=== PATIENT | male | born 1990 | race American Indian/Alaskan Native ===

== ENCOUNTER 2020-01-04 19:16 | Emergency (ER) | payer SELFPAY ==
[2020-01-04 19:27] VITALS: BP 148/87
--- NOTE | 2020-01-04 19:35 | Emergency Department Report ---
ED Abdominal Pain HPI - General Chief Complaint: Urogenital-Male Stated Complaint: GROIN PAIN Time Seen by Provider: 01/04/20 19:35 Source: patient Mode of arrival: Ambulatory Limitations: No Limitations - History of Present Illness Initial Comments: Patient is a 29-year-old male who comes to the ER complaining of right groin pain and concern for STI. I was get a MSE him with his STI concerns but given his groin pain he was checked into [facility] for evaluation. Patient denies any fever or chills. He denies any back pain. Last intercourse 2 days ago. Complaint: abdominal pain ED Review of Systems ROS: Stated complaint: GROIN PAIN Other details as noted in HPI Comment: All other systems reviewed and negative ED Past Medical Hx - Past Medical History Previous Medical History?: No - Surgical History Past Surgical History?: No - Social History Smoking Status: Never Smoker Substance Use Type: None ED Physical Exam - General Limitations: No Limitations General appearance: alert, in no apparent distress - Head Head exam: Present: atraumatic, normocephalic - Eye Eye exam: Present: normal appearance - ENT ENT exam: Present: mucous membranes moist - Neck Neck exam: Present: normal inspection - Respiratory Respiratory exam: Present: normal lung sounds bilaterally. Absent: respiratory distress - Cardiovascular Cardiovascular Exam: Present: regular rate, normal rhythm. Absent: systolic murmur, diastolic murmur, rubs, gallop - GI/Abdominal GI/Abdominal exam: Present: soft, normal bowel sounds - Rectal Rectal exam: Present: deferred - Extremities Exam Extremities exam: Present: normal inspection - Back Exam Back exam: Present: normal inspection - Neurological Exam Neurological exam: Present: alert, oriented X3 - Psychiatric Psychiatric exam: Present: normal affect, normal mood - Skin Skin exam: Present: warm, dry, intact, normal color. Absent: rash ED Course Vital Signs 01/04/20 19:25 Temperature 98.5 F Pulse Rate 91 H Respiratory 18 Rate Blood Pressure 148/87 O2 Sat by Pulse 100 Oximetry ED Medical Decision Making - Medical Decision Making Lab Results 01/04/20 Range/Units Unknown Urine Color Yellow (Yellow) Urine Turbidity Clear (Clear) Urine pH 6.0 (5.0-7.0) Ur Specific [place] 1.017 (1.003-1.030) Urine Protein <15 mg/dl (Negative) mg/dL Urine Glucose (UA) Neg (Negative) mg/dL Urine Ketones Tr (Negative) mg/dL Urine Blood Neg (Negative) Urine Nitrite Neg (Negative) Urine Bilirubin Neg (Negative) Urine Urobilinogen 2.0 (<2.0) mg/dL Ur Leukocyte Esterase Neg (Negative) Urine WBC (Auto) 1.0 (0.0-6.0) /HPF Urine RBC (Auto) 1.0 (0.0-6.0) /HPF Urine Mucus Few /HPF Vital Signs 01/04/20 19:25 Temperature 98.5 F Pulse Rate 91 H Respiratory 18 Rate Blood Pressure 148/87 O2 Sat by Pulse 100 Oximetry UA NOTED When I proceeded to examine the patient in [facility] I asked him where he had the bump in his groin that he described in triage. He stated always not a bump and he pointed to his penis and stated that he was having tingling with urination. I told the patient that his UA was clean and that there was no evidence that he had an STI. He has no discharge on exam. He has no lesions on his penis. Patient is being discharged home with PCP follow-up. - Differential Diagnosis Rule out hernia Critical care attestation.: If time is entered above; I have spent that time in minutes in the direct care of this critically ill patient, excluding procedure time. ED Disposition Clinical Impression: Dysuria Disposition: DC-01 TO HOME OR SELFCARE Is pt being admited?: No Does the pt Need Aspirin: No Condition: Stable Additional Instructions: STAY WELL HYDRATED SAFE SEX FOLLOW UP WITH PCP REFERRAL BELOW Referrals: AKIL PRIDE MD [Staff Physician] - 3-5 Days Time of Disposition: 20:12
[2020-01-04 19:51] LABS: Bilirubin,Urine NEG (Negative); Blood,Urine NEG (Negative); Color,Urine Yellow (Yellow); Mucus,Urine FEW /HPF; Protein,Urine <15 mg/dL mg/dL (Negative)
== END 2020-01-04 20:50 | disposition home or self-care (01) ==
LOC: ED 19:16
DX: R30.0 Dysuria (principal); R10.31 Right lower quadrant pain
CPT/HCPCS: 81001; 99283

== ENCOUNTER 2021-03-05 03:06 | Emergency (ER) | payer SELFPAY ==
[2021-03-05 03:31] VITALS: BP 119/82
[2021-03-05 04:03] LABS: Hematocrit 45.5 % (35.5-45.6); Hemoglobin 15.1 gm/dl (11.8-15.2); Mean Corpuscular HGB Conc 33 % (32-34); Mean Corpuscular Volume 87 fl (84-94); Red Blood Count 5.22 M/mm3 (3.65-5.03); Red Cell Distribution Width 13.1 % (13.2-15.2)
[2021-03-05 04:17] LABS: Platelet Count 93 K/mm3 (140-440)
[2021-03-05 04:20] LABS: Blood Urea Nitrogen 11 mg/dL (9-20); Calcium 8.3 mg/dL (8.4-10.2); Hemolysis Index 11
[2021-03-05 04:47] LABS: BUN/Creatinine Ratio 16
[2021-03-05 05:31] LABS: Anisocytosis 1+; Platelet Estimate Consistent w Auto; Total Cells Counted 100
--- NOTE | 2021-03-06 11:12 | Electrocardiograph Report ---
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
== END 2021-03-05 07:46 ==
LOC: ED 03:06
DX: R07.89 Other chest pain (principal); Z53.21 Procedure and treatment not carried out due to patient leaving prior to being seen by health care provider
CPT/HCPCS: 36415; 80048; 84484; 85007; 85025; 93005